=== PATIENT | female | born 1980 | race Caucasian/White ===

== ENCOUNTER 2017-12-03 10:13 | Emergency (ER) | payer MEDICAID, SELFPAY ==
[~2017-12-03] VITALS: Ht 165.1 cm; Wt 90.5 kg
[~2017-12-03 10:13] MED LIST: AZITHROMYCIN 500 MG TABLET PO SCH
[2017-12-03 11:14] LABS: BASOPHILS # (AUTO) 0.03 x10^3/uL (0-0.1); BASOPHILS % (AUTO) 0 % (0-1); EOSINOPHILS # (AUTO) 0.03 x10^3/uL (0-0.4); EOSINOPHILS % (AUTO) 0 % (1-7); LYMPHOCYTES % (AUTO) 16 % (22-44); MD NO; MEAN CORPUSCULAR HEMOGLOBIN 29.8 pg (27.0-34.8); MEAN CORPUSCULAR HGB CONC 34.5 g/dL (32.4-35.8); MEAN CORPUSCULAR VOLUME 86.4 fL (80-100); MEAN PLATELET VOLUME 8.3 fL (7.4-10.4); MONOCYTES # (AUTO) 0.97 x10^3/uL (0.2-0.8); MONOCYTES % (AUTO) 12 % (2-9); NEUTROPHILS # (AUTO) 5.74 x10^3/uL (1.8-6.8); NEUTROPHILS % (AUTO) 71 % (42-75); PLATELET COUNT 219 x10^3/uL (130-400); RED CELL DISTRIBUTION WIDTH 13.5 % (9.6-15.2)
[2017-12-03 12:34] LABS: ALANINE AMINOTRANSFERASE 182 U/L (12-78); ALBUMIN 3.7 g/dL (3.4-5.0); ANION GAP 13 mmol/L (5-15); CALCIUM 8.5 mg/dL (8.5-10.1); CHLORIDE 102 mmol/L (98-107)
[2017-12-03 12:37] LABS: ALKALINE PHOSPHATASE 65 U/L (45-117); BILIRUBIN,TOTAL 1.4 mg/dL (0.2-1.0); CREATININE 0.87 mg/dL (0.55-1.02); TOTAL PROTEIN 8.1 g/dL (6.4-8.2)
[2017-12-03 13:19] LABS: CULTURE INDICATED? YES; MICROSCOPIC INDICATED
[2017-12-03] MEDS ORDERED: POTASSIUM CHLORIDE 20 MEQ TAB.ER.PRT PO ONE (13:30)
[2017-12-03] MEDS ORDERED: PLEASE ENTER ALLERGIES MC SCH (13:30)
[2017-12-03] MEDS ORDERED: POTASSIUM CHLORIDE 20 MEQ TAB.ER.PRT ONE (13:35)
[2017-12-03 14:27] VITALS: BP 134/91
[2017-12-03] MEDS ORDERED: CEFTRIAXONE 1,000 MG IM ONE (14:30)
[2017-12-03] MEDS ORDERED: CEFTRIAXONE 250 MG ONE (14:40)
[2017-12-03] MEDS ORDERED: AZITHROMYCIN 500 MG TABLET ONE (14:41)
[2017-12-03 14:47] LABS: CLUE CELLS NONE SEEN (NONE SEEN); WET PREP WBCS NONE SEEN (FEW)
[2017-12-03] MEDS ORDERED: AZITHROMYCIN 500 MG TABLET PO ONE (15:00)
[2017-12-04] MEDS ORDERED: AZITHROMYCIN 500 MG TABLET PO SCH (09:00)
== END 2017-12-03 15:19 | disposition home or self-care (01) ==
LOC: ED 13:45
DX: N72 Inflammatory disease of cervix uteri (principal); N93.8 Other specified abnormal uterine and vaginal bleeding; D25.9 Leiomyoma of uterus, unspecified
CPT/HCPCS: 36415; 76830; 80053; 81001; 84703; 85025; 87086; 87210; 87491; 87591; 87808; 93005; 96372; 99285; J0696

== ENCOUNTER 2018-01-27 18:17 | Emergency (ER) | payer MEDICAID ==
[~2018-01-27] VITALS: Ht 165.1 cm; Wt 79.0 kg
[2018-01-27 18:18] VITALS: BP 142/97
[2018-01-27 18:55] LABS: BASOPHILS # (AUTO) 0.05 x10^3/uL (0-0.1); BASOPHILS % (AUTO) 1 % (0-1); EOSINOPHILS # (AUTO) 0.06 x10^3/uL (0-0.4); EOSINOPHILS % (AUTO) 1 % (1-7); LYMPHOCYTES # (AUTO) 1.98 x10^3/uL (1-3.4); LYMPHOCYTES % (AUTO) 25 % (22-44); MD NO; MEAN CORPUSCULAR HEMOGLOBIN 30.4 pg (27.0-34.8); MEAN CORPUSCULAR HGB CONC 34.2 g/dL (32.4-35.8); MEAN CORPUSCULAR VOLUME 88.9 fL (80-100); MEAN PLATELET VOLUME 8.2 fL (7.4-10.4); MONOCYTES # (AUTO) 0.67 x10^3/uL (0.2-0.8); MONOCYTES % (AUTO) 8 % (2-9); NEUTROPHILS # (AUTO) 5.26 x10^3/uL (1.8-6.8); NEUTROPHILS % (AUTO) 66 % (42-75); PLATELET COUNT 258 x10^3/uL (130-400); RED BLOOD COUNT 5.07 x10^6/uL (3.82-5.3); RED CELL DISTRIBUTION WIDTH 14.3 % (9.6-15.2)
[2018-01-27] MEDS ORDERED: ALBUTEROL SULFATE 2.5 MG/3 ML ONE (18:58)
[2018-01-27] MEDS ORDERED: ALBUTEROL SULFATE 2.5 MG/3 ML NPPB ONE (19:00)
[2018-01-27 19:03] LABS: ALBUMIN 3.8 g/dL (3.4-5.0); ANION GAP 6 mmol/L (5-15); CALCIUM 8.6 mg/dL (8.5-10.1); CHLORIDE 108 mmol/L (98-107); CREATININE 0.75 mg/dL (0.55-1.02)
[2018-01-27 19:06] LABS: TROPONIN I < 0.015 ng/mL (0.000-0.045)
== END 2018-01-27 19:42 | disposition home or self-care (01) ==
LOC: ED 19:01
DX: J20.9 Acute bronchitis, unspecified (principal); I10 Essential (primary) hypertension
CPT/HCPCS: 36415; 71046; 80048; 82040; 84484; 85025; 93005; 94640; 99285; J7613

== ENCOUNTER 2018-02-13 01:15 | Emergency (ER) | payer MEDICAID ==
[~2018-02-13] VITALS: Ht 165.1 cm; Wt 77.0 kg
[2018-02-13 01:16] VITALS: BP 146/102
[2018-02-13] MEDS ORDERED: FAMOTIDINE 20 MG TABLET ONE (02:46)
[2018-02-13] MEDS ORDERED: KETOROLAC 30 MG/1 ML ONE (02:46)
[2018-02-13] MEDS ORDERED: FAMOTIDINE 20 MG TABLET PO ONE (03:00)
[2018-02-13] MEDS ORDERED: KETOROLAC 30 MG/1 ML IM ONE (03:00)
== END 2018-02-13 04:23 | disposition home or self-care (01) ==
LOC: ED 03:08
DX: S20.219A Contusion of unspecified front wall of thorax, initial encounter (principal); S00.31XA Abrasion of nose, initial encounter; F10.120 Alcohol abuse with intoxication, uncomplicated; I10 Essential (primary) hypertension; W19.XXXA Unspecified fall, initial encounter; Y93.K1 Activity, walking an animal; Y92.89 Other specified places as the place of occurrence of the external cause; Y99.8 Other external cause status; Y90.9 Presence of alcohol in blood, level not specified
CPT/HCPCS: 71101; 93005; 96372; 99284; J1885

== ENCOUNTER 2018-02-20 23:55 | Emergency (ER) | payer MEDICAID ==
[~2018-02-20] VITALS: Ht 162.6 cm; Wt 75.5 kg
[2018-02-21 00:31] LABS: BASOPHILS # (AUTO) 0.01 x10^3/uL (0-0.1); BASOPHILS % (AUTO) 0 % (0-1); EOSINOPHILS # (AUTO) 0.06 x10^3/uL (0-0.4); EOSINOPHILS % (AUTO) 1 % (1-7); LYMPHOCYTES # (AUTO) 1.48 x10^3/uL (1-3.4); LYMPHOCYTES % (AUTO) 27 % (22-44); MD NO; MEAN CORPUSCULAR HEMOGLOBIN 29.8 pg (27.0-34.8); MEAN CORPUSCULAR HGB CONC 33.8 g/dL (32.4-35.8); MEAN PLATELET VOLUME 8.2 fL (7.4-10.4); MONOCYTES # (AUTO) 0.14 x10^3/uL (0.2-0.8); MONOCYTES % (AUTO) 3 % (2-9); NEUTROPHILS # (AUTO) 3.87 x10^3/uL (1.8-6.8); NEUTROPHILS % (AUTO) 70 % (42-75); PLATELET COUNT 206 x10^3/uL (130-400); RED BLOOD COUNT 4.73 x10^6/uL (3.82-5.3); RED CELL DISTRIBUTION WIDTH 13.9 % (9.6-15.2)
[2018-02-21 00:42] LABS: ALBUMIN 3.5 g/dL (3.4-5.0); ANION GAP 10 mmol/L (5-15); CALCIUM 8.7 mg/dL (8.5-10.1); CHLORIDE 107 mmol/L (98-107); CREATININE 0.73 mg/dL (0.55-1.02)
[2018-02-21 00:46] LABS: TROPONIN I < 0.015 ng/mL (0.000-0.045)
[2018-02-21 01:12] VITALS: BP 137/90
== END 2018-02-21 01:49 | disposition home or self-care (01) ==
LOC: ED 23:59
DX: R07.89 Other chest pain (principal); F15.129 Other stimulant abuse with intoxication, unspecified; Z72.89 Other problems related to lifestyle; I10 Essential (primary) hypertension; Z79.899 Other long term (current) drug therapy
CPT/HCPCS: 36415; 71045; 80048; 80307; 82040; 84484; 85025; 93005; 99285

== ENCOUNTER 2018-11-17 17:25 | Emergency (ER) | payer SELFPAY ==
[~2018-11-17] VITALS: Ht 165.1 cm; Wt 67.4 kg
[2018-11-17 17:38] VITALS: BP 88/63
--- NOTE | 2018-11-17 19:13 | NUR ---
pt to room from lobby
[2018-11-17 19:43] LABS: BASOPHILS # (AUTO) 0.01 x10^3/uL (0-0.1); BASOPHILS % (AUTO) 0 % (0-1); EOSINOPHILS # (AUTO) 0.01 x10^3/uL (0-0.4); EOSINOPHILS % (AUTO) 0 % (1-7); LYMPHOCYTES # (AUTO) 1.11 x10^3/uL (1-3.4); LYMPHOCYTES % (AUTO) 9 % (22-44); MD NO; MEAN CORPUSCULAR HEMOGLOBIN 30.6 pg (27.0-34.8); MEAN CORPUSCULAR HGB CONC 34.6 g/dL (32.4-35.8); MEAN CORPUSCULAR VOLUME 88.2 fL (80-100); MEAN PLATELET VOLUME 8.1 fL (7.4-10.4); MONOCYTES # (AUTO) 0.62 x10^3/uL (0.2-0.8); MONOCYTES % (AUTO) 5 % (2-9); NEUTROPHILS % (AUTO) 87 % (42-75); PLATELET COUNT 241 x10^3/uL (130-400); RED BLOOD COUNT 5.24 x10^6/uL (3.82-5.3)
[2018-11-17 19:55] LABS: ALANINE AMINOTRANSFERASE 62 U/L (12-78); ALBUMIN 3.9 g/dL (3.4-5.0); ANION GAP 9 mmol/L (5-15); CALCIUM 9.1 mg/dL (8.5-10.1); CHLORIDE 101 mmol/L (98-107); CREATININE 0.84 mg/dL (0.55-1.02)
[2018-11-17 19:59] LABS: ALKALINE PHOSPHATASE 78 U/L (45-117); BILIRUBIN,TOTAL 1.2 mg/dL (0.2-1.0); TOTAL PROTEIN 8.5 g/dL (6.4-8.2)
[2018-11-17 20:28] LABS: CULTURE INDICATED? YES; MICROSCOPIC INDICATED
[2018-11-17 20:38] LABS: AMPHETAMINE SCREEN, URINE Positive (Negative); BARBITURATE SCREEN, URINE Negative (Negative); BENZODIAZEPINE SCREEN, URINE Negative (Negative); CANNABINOID SCREEN, URINE Negative (Negative); COCAINE SCREEN, URINE Negative (Negative); METHADONE SCREEN, URINE Negative (Negative); OPIATE SCREEN, URINE Negative (Negative)
--- NOTE | 2018-11-17 21:26 | NUR ---
RN IN ROOM AGAIN TO CHECK ON PT, PT ENCOURAGED AND EDUCATED NOT TO CLEAN HERSELF WITH HYDROGEN PEROXIDE CLEANING WIPES, PT CONTINUES TO WIPE HER CLOTHES AND HERSELF DOWN WITH WIPES. WILL DC PT [place] TO PREVENT FURTHER CLEANING W/WIPES AND STEALING
--- NOTE | 2018-11-17 21:26 | NUR ---
Pt seems to have collected multiple supplies in a basin on her gurney, appears to have the intention to take these items with her on discharge. Pt encouraged not to steal all the supplies from the room. Pt agrees to put hospital property back where it goes.
--- NOTE | 2018-11-17 21:33 | NUR ---
Pt verbalized understanding of DC instructions and importance of abx use. Pt agrees to get dressed
== END 2018-11-17 21:37 | disposition home or self-care (01) ==
LOC: ED 20:18
DX: N30.00 Acute cystitis without hematuria (principal); F15.129 Other stimulant abuse with intoxication, unspecified; Z72.9 Problem related to lifestyle, unspecified; I10 Essential (primary) hypertension
CPT/HCPCS: 36415; 80053; 80307; 81001; 84703; 85025; 87077; 87086; 87186; 99283

== ENCOUNTER 2018-12-14 06:04 | Emergency (ER) | payer MEDICAID, OTHER ==
[~2018-12-14] VITALS: Ht 165.1 cm; Wt 60.0 kg
[2018-12-14 06:07] VITALS: BP 149/100
== END 2018-12-14 08:27 | disposition home or self-care (01) ==
LOC: ED 08:09
DX: F15.129 Other stimulant abuse with intoxication, unspecified (principal)
CPT/HCPCS: 71045; 99283